=== PATIENT | female | born 1955 | race Asian ===

== ENCOUNTER 2018-08-31 18:48 | Inpatient (IN) | payer OTHER ==
[2018-08-31 19:00] VITALS: BMI 27.9
--- NOTE | 2018-08-31 19:01 | PDOC ---
Rapid Medical Evaluation Chief Complaint: Shortness of Breath Time Seen by Provider: 08/31/18 18:58 Medical Evaluation: Allergies Allergy/AdvReac Type Severity Reaction Status Date / Time No Known Drug Allergies Allergy Verified 08/31/18 18:56 nuts Allergy Mild RASH,ITCHY Uncoded 10 18:56 THROAT seafood Allergy Mild RASH,ITCHY Uncoded 08/31/18 18:56 THROAT I have performed a brief in-person evaluation of this patient. The patient presents with a chief complaint of: SOB x 1 week. cold symptoms. Came back from [place] 2 days ago Pertinent physical exam findings: 100bpm = HR; 88% on RA. congested sounding cough I have ordered the following: CXR, labs, EKG The patient will proceed to the ED for further evaluation Discharge Disposition - Diagnosis Shortness of breath - Referrals Referrals: David Og MD [Primary Care Provider] - - Patient Instructions - Post Discharge Activity
[2018-08-31 19:19] LABS: BASO % 0.2 % (0-2.0); HEMATOCRIT 40.9 % (32.4-45.2); HEMOGLOBIN 12.9 GM/dL (10.7-15.3); LYMPH % 30.7 % (8-40); MCH 23.6 pg (25.7-33.7); MCHC 31.5 g/dl (32.0-36.0); MEAN CELL VOLUME 74.8 fl (80-96); MEAN PLT VOLUME 9.1 fl (7.5-11.1); MONO % 5.2 % (3.8-10.2); NEUT % 54.9 % (42.8-82.8); PLATELET COUNT 232 K/MM3 (134-434); RBC 5.47 M/mm3 (3.60-5.2); RDW 15.4 % (11.6-15.6); WHITE BLOOD COUNT 6.4 K/mm3 (4.0-10.0)
--- NOTE | 2018-08-31 19:35 | PDOC ---
History of Present Illness - General Chief Complaint: Shortness of Breath Stated Complaint: Shortness of Breath Time Seen by Provider: 08/31/18 18:58 History Source: Patient Exam Limitations: No Limitations - History of Present Illness Initial Comments: 08/31/18 19:59 62 year old female with PMH asthma, HLD presenting to ED for SOB and cough x1 week that worsened x1 day ago. She recently flew from [place] to here x1 day ago , 12 hour plane ride, she reports she got up to use the bathroom on the plane. She admits to right calf swelling x1 day. She states her cough is productive, clear, denies hematoptysis. She admits to chest tightness and chest pain with inspiration. She denies fever, chills, nausea, vomiting, diarrhea, abdominal pain, weakness, numbness. She denies use of O2 at home currently, x3 years ago she used O2 at home PRN for 2 months. She was last hospitalized for asthma exacerbation x3 years ago, she denies hx of intubations. PCP - Lofficial Allergies - NKDA Past History - Past Medical History Allergies/Adverse Reactions: Allergies Allergy/AdvReac Type Severity Reaction Status Date / Time No Known Drug Allergies Allergy Verified 08/31/18 18:56 nuts Allergy Mild RASH,ITCHY Uncoded 08/31/18 18:56 THROAT seafood Allergy Mild RASH,ITCHY Uncoded 08/31/18 18:56 THROAT Home Medications: Ambulatory Orders Loratadine [Claritin] 10 mg PO PRN capsule 12/21/13 Montelukast Sodium [Singulair] 10 mg PO HS tablet 12/21/13 Albuterol Sulfate Inhaler - [Ventolin HFA Inhaler -] 1 - 2 inh PO PRN PRN Budesonide/Formeterol Fumarate [SYMBICORT 160/4.5mcg -] 1 inh PO BID 11/02/14 Celecoxib [Celebrex] 200 mg PO DAILY 11/02/14 Omeprazole [Prilosec] 20 mg PO PRN PRN 11/02/14 Simvastatin [Zocor -] 20 mg PO HS 11/02/14 Acetaminophen [Tylenol .Regular Strength -] 650 mg PO Q4H PRN #0 tablet Ibuprofen [Motrin -] 400 mg PO Q6H #120 tablet 11/05/14 Asthma: Yes COPD: No HTN: Yes (DOESN'T TAKE MED) Hypercholesterolemia: Yes - Surgical History Abdominal Surgery: Yes (gall stones removed) Cholecystectomy: Yes Orthopedic Surgery: No - Immunization History Td Vaccination: Yes Immunization Up to Date: Yes - Suicide/Smoking/Psychosocial Hx Smoking Status: No Smoking History: Never smoked Years of Tobacco Use: 0 Number of Cigarettes Smoked Daily: 0 Cigars Per Day: 0 Hx Alcohol Use: No Drug/Substance Use Hx: No Substance Use Type: None Review of Systems - Review of Systems Able to Perform ROS?: Yes Comments:: 08/31/18 20:09 General: denies fever, chills, night sweats, generalized weakness. HEENT: denies sore throat, rhinorrhea, ear pain. Heart: admits to chest tightness, lower extremity swelling, pleuritic chest pain. denies palpitations, syncope, diaphoresis. Respiratory: admits to shortness of breath, cough, sputum production. denies hemoptysis. Abdomen: denies abdominal pain, nausea, vomiting, diarrhea, constipation, blood in stool. : denies dysuria, increased urinary frequency, hematuria, urinary incontinence , flank pain. Back: denies back pain. Musculoskeletal: denies joint pain, muscle pain, joint swelling. Neurological: denies headache, dizziness, numbness, tingling, weakness. Skin: denies rash, laceration, abrasion. *Physical Exam - Vital Signs Last Vital Signs Temp Pulse Resp BP Pulse Ox 99.3 F 100 H 24 H 128/74 88 L 08/31/18 18:56 08/31/18 18:56 08/31/18 18:56 08/31/18 18:56 08/31/18 18:56 - Physical Exam Comments: 08/31/18 20:11 Constitutional: Well-nourished, Well-developed, appearing stated age. HEENT: head is normocephalic, atraumatic. EOMI. PERRLA. Neck: supple. Full ROM. Heart: regular rhythm. no murmurs, rubs or gallops. Lungs: clear to auscultation bilaterally. no crackles, rhonchi or wheezing. no stridor. Abdomen: soft, nontender. normal bowel sounds. no rebound, guarding, masses. Extremities: Peripheral pulses intact and equal. no calf tenderness to palpation of bilateral calf. minimal right lower leg non-pitting edema. Neurological: CN 2-12 grossly intact. Moves all four extremities. Psych: awake, alert, oriented x3. Follows commands. Answers questions appropriately. ED Treatment Course - LABORATORY CBC & Chemistry Diagram: 09/01/18 06:20 09/01/18 06:20 - ADDITIONAL ORDERS Additional order review: Laboratory Results 08/31/18 19:00 D-Dimer 749 H 08/31/18 19:13 RBC 5.47 H MCV 74.8 L MCHC 31.5 L RDW 15.4 MPV 9.1 Neutrophils % 54.9 Lymphocytes % 30.7 Monocytes % 5.2 Eosinophils % 9.0 H Basophils % 0.2 Medical Decision Making - Medical Decision Making 08/31/18 20:12 62 year old female with PMH asthma, HLD presenting to ED for SOB and cough x1 week that worsened x1 day ago. She recently flew from [place] to here x1 day ago , 12 hour plane ride associated with right calf swelling, chest tightness, pleuritic chest pain. Initial Vital Signs Temp Pulse Resp BP Pulse Ox 99.3 F 100 H 24 H 128/74 88 L 08/31/18 18:56 10 18:56 08/31/18 18:56 08/31/18 18:56 08/31/18 18:56 Borderline fever. - Pending rectal temp Tachycardic, Tachypneic. No hypotension. Hypoxia on room air. - 3L O2 given - Currently satting 96% - Duoneb ordered Concern for PE/DVT/pneumonia - Pending CTA - Pending RLE Duplex US CBC WBC 6.4 K/mm3 (4.0-10.0) 08/31/18 19:13 RBC 5.47 M/mm3 (3.60-5.2) H 08/31/18 19:13 Hgb 12.9 GM/dL (10.7-15.3) 08/31/18 19:13 Hct 40.9 % (32.4-45.2) 08/31/18 19:13 MCV 74.8 fl (80-96) L 08/31/18 19:13 MCH 23.6 pg (25.7-33.7) L 08/31/18 19: MCHC 31.5 g/dl (32.0-36.0) L 08/31/18 19:13 RDW 15.4 % (11.6-15.6) 08/31/18 19:13 Plt Count 232 K/MM3 (134-434) 08/31/18 19:13 MPV 9.1 fl (7.5-11.1) 08/31/18 19:13 Absolute Neuts (auto) 3.5 K/mm3 (1.5-8.0) 08/31/18 19:13 Neutrophils % 54.9 % (42.8-82.8) 08/31/18 19:13 Lymphocytes % 30.7 % (8-40) 08/31/18 19:13 Monocytes % 5.2 % (3.8-10.2) 08/31/18 19:13 Eosinophils % 9.0 % (0-4.5) H 08/31/18 19:13 Basophils % 0.2 % (0-2.0) 08/31/18 19:13 Nucleated RBC % 0 % (0-0) 08/31/18 19:13 No leukocytosis No anemia CMP Sodium 142 mmol/L (136-145) 08/31/18 19:00 Potassium 4.1 mmol/L (3.5-5.1) 08/31/18 19:00 Chloride 109 mmol/L (98-107) H 08/31/18 19:00 Carbon Dioxide 28 mmol/L (21-32) 08/31/18 19:00 Anion Gap 5 MMOL/L (8-16) L 08/31/18 19:00 BUN 8 mg/dL (7-18) 08/31/18 19:00 Creatinine 0.6 mg/dL (0.55-1.3) 08/31/18 19:00 Creat Clearance w eGFR > 60 (>60) 08/31/18 19:00 Random Glucose 135 mg/dL (74-106) H 08/31/18 19:00 Lactic Acid 1.3 mmol/L (0.4-2.0) 08/31/18 19:00 Calcium 9.3 mg/dL (8.5-10.1) 08/31/18 19:00 Total Bilirubin 0.2 mg/dL (0.2-1) 08/31/18 19:00 AST 10 U/L (15-37) L 08/31/18 19:00 ALT 17 U/L (13-61) 08/31/18 19:00 Alkaline Phosphatase 106 U/L (45-117) 08/31/18 19:00 Creatine Kinase 44 IU/L (26-192) 08/31/18 19:00 Troponin I < 0.02 ng/ml (0.00-0.05) 08/31/18 19:00 Total Protein 7.0 g/dl (6.4-8.2) 08/31/18 19:00 Albumin 3.5 g/dl (3.4-5.0) 08/31/18 19:00 No electrolyte abnormalities No acute kidney injury - Pt can be given IV contrast for CTA, seafood allergy does not contraindicate contrast in the setting of emergent CTA No transaminitis Cardiac enzymes normal. 08/31/18 20:28 CXR - no infiltrates or evidence of pneumonia. sharp costophrenic angles. no cardiomegaly. no pulmonary alveolar edema. 08/31/18 21:35 CTA negative for pulmonary embolism. Positive D-dimer. 08/31/18 21:57 Large pulmonary embolism unlikely, negative CTA. Pneumonia unlikely, afebrile, negative CXR, no pneumonia on CTA. Large pneumothorax unlikely, equal breath sounds, no pneumo on CXR. CHF unlikely, no pitting edema, no crackles on auscultation, no cardiomegaly on CXR, no pulmonary alveolar edema on CXR. Pt likely has asthma exacerbation, similar episode to prior. Pt will be admitted for shortness of breath, hx of asthma, requiring O2 supplementation. 08/31/18 22:[address] Rdz about the case, who will assume care for the patient once she is admitted. *DC/Admit/Observation/Transfer Diagnosis at time of Disposition: Shortness of breath - Discharge Dispostion Condition at time of disposition: Stable Decision to Admit order: Yes - Referrals - Patient Instructions - Post Discharge Activity
--- NOTE | 2018-08-31 19:40 | PDOC ---
Attending Attestation - Resident Resident Name: Mandi Rosa - ED Attending Attestation I have performed the following: I have examined & evaluated the patient, The case was reviewed & discussed with the resident, I agree w/resident's findings & plan, Exceptions are as noted - HPI HPI: 62 yo F history asthma, HL presents with SOB and cough x1 week, worse for 1 day. She just returned from [place], 12 hour flight. Also c/o R calf swelling x1 day. - Physicial Exam PE: GENERAL: Awake, alert, and fully oriented, in no acute distress HEAD: No signs of trauma EYES: PERRLA, EOMI, sclera anicteric, conjunctiva clear ENT: Auricles normal inspection, hearing grossly normal, nares patent, oropharynx clear without exudates. Moist mucosa NECK: Normal ROM, supple, no lymphadenopathy, JVD, or masses LUNGS: Breath sounds equal, clear to auscultation bilaterally. No wheezes, and no crackles. Speaking full sentences. HEART: Regular rate and rhythm, normal S1 and S2, no murmurs, rubs or gallops ABDOMEN: Soft, nontender, normoactive bowel sounds. No guarding, no rebound. No masses EXTREMITIES: Normal range of motion, no edema LLE. 1+ edema to the R ankle. No clubbing or cyanosis. No cords, erythema, or tenderness NEUROLOGICAL: Cranial nerves II through XII grossly intact. Normal speech. Motor and sensation intact. SKIN: Warm, Dry, normal turgor, no rashes or lesions noted. - Medical Decision Making Pt with tachycardia and hypoxia on triage. High risk for PE based on clinical eval, will obtain CTA to r/o PE. If negative, will obtain ultrasound of the lower extremity to r/o DVT. 08/31/18 22:11 CTA negative for PE. Will obtain RLE DVT study. Will give additional duonebs, as she has history of exertional dyspnea due to asthma in the past. Will plan on observation.
[2018-08-31 19:48] LABS: ALBUMIN 3.5 g/dl (3.4-5.0); ALK PHOS 106 U/L (45-117); ANION GAP 5 MMOL/L (8-16); BILIRUBIN,TOTAL 0.2 mg/dL (0.2-1); BLOOD UREA NITROGEN 8 mg/dL (7-18); CALCIUM 9.3 mg/dL (8.5-10.1); CHLORIDE 109 mmol/L (98-107); CO2 28 mmol/L (21-32); CREATININE 0.6 mg/dL (0.55-1.3); GLUCOSE,RANDOM 135 mg/dL (74-106); POTASSIUM 4.1 mmol/L (3.5-5.1); SGOT/AST 10 U/L (15-37); SGPT/ALT 17 U/L (13-61); SODIUM 142 mmol/L (136-145)
[2018-08-31] MEDS: ALBUTEROL SO4 2.5/IPRATROPIUM 0.5 INH SOL 3 ML VIAL.NEB. NEB SCH ×4 (22:15→23:00)
[2018-08-31 22:46] LABS: N-TERMINAL BNP 51.8 pg/ml (5-125)
--- NOTE | 2018-08-31 22:56 | PN ---
Teaching Attending Note Name of Resident: Matt Rdz ATTENDING PHYSICIAN STATEMENT I saw and evaluated the patient. I reviewed the resident's note and discussed the case with the resident. I agree with the resident's findings and plan as documented. SUBJECTIVE: Patient is a 62 year old woman with PMH of asthma, HLD presenting to ER for SOB and cough for 1 week. She recently flew from [place] to here x1 day ago on a 12 hour plane ride. She admits to right calf swelling for1 day. She states her cough is productive, clear, denies hemoptysis. She admits to chest tightness and chest pain with inspiration. She denies fever, chills, nausea, vomiting, diarrhea, abdominal pain, weakness, numbness. She denies use of O2 at home currently. Three years ago she used O2 at home PRN for 2 months. She was last hospitalized for asthma exacerbation x3 years ago and she denies history of intubations. OBJECTIVE: Alert Vital Signs Period Temp Pulse Resp BP Sys/Mendoza Pulse Ox Last 24 Hr 99.3 F 100 24 128/74 88 HEENT: No Jaundice, eye redness or discharge, PERRLA, EOMI. Normocephalic, atraumatic. External ears are normal and hearing is grossly intact. No nasal discharge. Neck: Supple, nontender. No palpable adenopathy or thyromegaly. No JVD Chest: Good effort. Clear to auscultation and percussion. Heart: Regular. No S3, rub or murmur Abdomen: Not distended, soft, nontender and no HSM. No rebound or guarding. Normoactive bowel sounds. Ext: Peripheral pulses intact. No leg edema. Skin: Warm and dry. No petechiae, rash or ecchymosis. Neuro: Alert. Oriented x3. CN 2-12 grossly intact. Sensation grossly intact in all four extremities and DTR are symmetric. Current Medications Generic Name Dose Route Start Last Admin Trade Name Freq PRN Reason Stop Dose Admin Albuterol/Ipratropium 1 amp 08/31/18 22:15 Duoneb - NEB 08/31/18 23:01 Q15M [facility] Home Medications Medication Instructions Recorded Loratadine [Claritin] 10 mg PO PRN capsule 12/21/13 Montelukast Sodium [Singulair] 10 mg PO HS tablet 12/21/13 Albuterol Sulfate Inhaler - 1 - 2 inh PO PRN PRN 11/02/14 [Ventolin HFA Inhaler -] Budesonide/Formeterol Fumarate 1 inh PO BID 11/02/14 [SYMBICORT 160/4.5mcg -] Celecoxib [Celebrex] 200 mg PO DAILY 11/02/14 Omeprazole [Prilosec] 20 mg PO PRN PRN 11/02/14 Simvastatin [Zocor -] 20 mg PO HS 11/02/14 Acetaminophen [Tylenol .Regular 650 mg PO Q4H PRN #0 tablet 11/05/14 Strength -] Ibuprofen [Motrin -] 400 mg PO Q6H #120 tablet 11/05/14 Abnormal Lab Results 08/31/18 08/31/18 08/31/18 19:00 19:00 19:13 RBC 5.47 H MCV 74.8 L MCH 23.6 L MCHC 31.5 L Eosinophils % 9.0 H D-Dimer 749 H Chloride 109 H Anion Gap 5 L Random Glucose 135 H AST 10 L ASSESSMENT AND PLAN: 1. Acute Bronchospasm - May have been precipitated by a URI. No PE on CTPA and CXR shows cardiomegaly. Will treat with duoneb, symbicort, spiriva and azithromycin. Get ECHO. 2. DVT prophylaxis - Lovenox 40 mg SQ q 24 hours. 3. Advance directives - Full code
[2018-08-31] MEDS ORDERED: ALBUTEROL SO4 2.5/IPRATROPIUM 0.5 INH SOL 3 ML VIAL.NEB. NEB ONE (23:08)
[2018-09-01] MEDS ORDERED: ALBUTEROL SO4 2.5/IPRATROPIUM 0.5 INH SOL 3 ML VIAL.NEB. NEB PRN (01:08)
[2018-09-01] MEDS ORDERED: AZITHROMYCIN IVPB 250 MG in DEXTROSE 5%-WATER - 250 ML IVPB ONE (01:24)
[2018-09-01 01:30] LABS: VENOUS PC02 41.4 mmHg (38-52); VENOUS PH 7.38 (7.32-7.42); VENOUS PO2 51.9 mmHg (28-48)
[2018-09-01] MEDS ORDERED: PATIENT'S OWN MEDICATION (NON-FORMULARY) (Omeprazole Pediatric Solution 20 MG) PO PRN (01:41)
[2018-09-01] MEDS ORDERED: CELECOXIB 200 MG CAPSULE PO PRN (01:41)
[2018-09-01] MEDS ORDERED: LORATADINE 10 MG PO SCH (01:45)
--- NOTE | 2018-09-01 01:45 | HP ---
CHIEF COMPLAINT: SOB PCP: Dr. Caazresofficial HISTORY OF PRESENT ILLNESS: Pt speaks Uzbek primarily, but does speak Swedish. Family at bedside helped provide some history. Daughter is a nurse. Pt is a 62 y/o F with PMH asthma and COPD who presents to ED with complaint of malaise and cough for 1 week. Cough is productive of minimal clear sputum has been worse since yesterday. Pt endorses some chest tightness. Pt recently returned from a trip to [place] in March. She got back about 1 week ago and states her symptoms began before her flight home. Pt also notes that she has been using her nebulizer recently. She doesn't normally need it, but has been using it over the past week. Family note that pt is using it twice daily and occasionally has woken up to use it at night. Per ED staff, pt told them she felt her R leg was slightly swollen. Family clarified to me that the patient had seen her doctor previously and that her ankle had an isolated region of possible swelling (on the lateral aspect anterior to the lateral maleolus). No other complaints. Pt feels much better now than when she arrived in ED. ER course was notable for: (1) no leukocytosis, afebrile, D-dimer 749 (2) b/l LE U/S pending, CXR normal, CTA neg for PE (3) duonebs Recent Travel: [place] in March. Returned 1 week ago PAST MEDICAL HISTORY: asthma, COPD, HLD PAST SURGICAL HISTORY: cholecystectomy Social History: Smoking: denies Alcohol: denies Drugs: denies Family History: denies Allergies No Known Drug Allergies Allergy (Verified 08/31/18 18:56) nuts Allergy (Mild, Uncoded 08/31/18 18:56) RASH,ITCHY THROAT seafood Allergy (Mild, Uncoded 08/31/18 18:56) RASH,ITCHY THROAT HOME MEDICATIONS: Home Medications Medication Instructions Recorded Loratadine [Claritin] 10 mg PO PRN capsule 12/21/13 Montelukast Sodium [Singulair] 10 mg PO HS tablet 12/21/13 Albuterol Sulfate Inhaler - 1 - 2 inh PO PRN PRN 11/02/14 [Ventolin HFA Inhaler -] Budesonide/Formeterol Fumarate 1 inh PO BID 11/02/14 [SYMBICORT 160/4.5mcg -] Celecoxib [Celebrex] 200 mg PO DAILY 11/02/14 Omeprazole [Prilosec] 20 mg PO PRN PRN 11/02/14 Simvastatin [Zocor -] 20 mg PO HS 11/02/14 Acetaminophen [Tylenol .Regular 650 mg PO Q4H PRN #0 tablet 11/05/14 Strength -] Ibuprofen [Motrin -] 400 mg PO Q6H #120 tablet 11/05/14 REVIEW OF SYSTEMS CONSTITUTIONAL: Absent: fever, chills, diaphoresis, generalized weakness, malaise, loss of appetite, weight change HEENT: Absent: rhinorrhea, nasal congestion, throat pain, throat swelling, difficulty swallowing, mouth swelling, ear pain, eye pain, visual changes CARDIOVASCULAR: Absent: chest pain, syncope, palpitations, irregular heart rate, lightheadedness , peripheral edema RESPIRATORY: cough, shortness of breath Absent: , dyspnea with exertion, orthopnea, wheezing, stridor, hemoptysis GASTROINTESTINAL: Absent: abdominal pain, abdominal distension, nausea, vomiting, diarrhea, constipation, melena, hematochezia GENITOURINARY: Absent: dysuria, frequency, urgency, hesitancy, hematuria, flank pain, genital pain MUSCULOSKELETAL: joint swelling Absent: myalgia, arthralgia, , back pain, neck pain SKIN: Absent: rash, itching, pallor HEMATOLOGIC/IMMUNOLOGIC: Absent: easy bleeding, easy bruising, lymphadenopathy, frequent infections ENDOCRINE: Absent: unexplained weight gain, unexplained weight loss, heat intolerance, cold intolerance NEUROLOGIC: Absent: headache, focal weakness or paresthesias, dizziness, unsteady gait, seizure, mental status changes, bladder or bowel incontinence PSYCHIATRIC: Absent: anxiety, depression, suicidal or homicidal ideation, hallucinations. PHYSICAL EXAMINATION Vital Signs - 24 hr 08/31/18 09/01/18 18:56 00:58 Temperature 99.3 F 98.0 F Pulse Rate 100 H Pulse Rate [ 103 H Apical] Respiratory 24 H 18 Rate Blood Pressure 128/74 Blood Pressure 111/64 [Left] O2 Sat by Pulse 88 L 95 Oximetry (%) Gen: Comfortable, NAD, sitting in bed HEENT: NCAT, EOMI neck: supple, no jvd, no stridor, no wheeze cardio: mild tachy ~90, regular, no murmurs/rubs/gallops pulm: cta b/l. No wheezing appreciated abd: soft, nontender, non distended, no masses noted ext: right ankle with very minimal swelling anterior to lat malleolus. no calf swelling/erythema. Moran neg. Homman neg. Neuro: no focal deficits. No droop. strength and sensation intact. Laboratory Results - last 24 hr 08/31/18 08/31/18 08/31/18 19:00 19:00 19:00 WBC RBC Hgb Hct MCV MCH MCHC RDW Plt Count MPV Absolute Neuts (auto) Neutrophils % Lymphocytes % Monocytes % Eosinophils % Basophils % Nucleated RBC % D-Dimer 749 H Sodium 142 Potassium 4.1 Chloride 109 H Carbon Dioxide 28 Anion Gap 5 L BUN 8 Creatinine 0.6 Creat Clearance w eGFR > 60 Random Glucose 135 H Lactic Acid 1.3 Calcium 9.3 Total Bilirubin 0.2 AST 10 L ALT 17 Alkaline Phosphatase 106 Creatine Kinase 44 Troponin I < 0.02 B-Natriuretic Peptide 51.8 Total Protein 7.0 Albumin 3.5 08/31/18 19:13 WBC 6.4 RBC 5.47 H Hgb 12.9 Hct 40.9 MCV 74.8 L MCH 23.6 L MCHC 31.5 L RDW 15.4 Plt Count 232 MPV 9.1 Absolute Neuts (auto) 3.5 Neutrophils % 54.9 Lymphocytes % 30.7 Monocytes % 5.2 Eosinophils % 9.0 H Basophils % 0.2 Nucleated RBC % 0 D-Dimer Sodium Potassium Chloride Carbon Dioxide Anion Gap BUN Creatinine Creat Clearance w eGFR Random Glucose Lactic Acid Calcium Total Bilirubin AST ALT Alkaline Phosphatase Creatine Kinase Troponin I B-Natriuretic Peptide Total Protein Albumin ASSESSMENT/PLAN: Pt is a 62 y/o F with PMH asthma, COPD who presented to ED with cough. Pt is being observed for asthma exacerbation and to r/o VTE. #Asthma exacerbation -c/o SOB/Cough -? etiology. No signs of infection. Clear sputum, Afebrile, no leukocytosis, CXR /CT chest neg. Consider possible viral URI -Duonebs standing and prn -prednisone -coverage with Azithromycin #r/o PE -presenting with SOB and cough following long plane trip -D-dimer elevated -CTA neg #r/o DVT -presenting with SOB and cough following long plane trip -b/l LE u/s #cardiomegally -Noted on CXR -Echo #COPD -continue home Symbicort, Singulair #Allergies -c/w home claratin #HLD -c/w home simvastatin #arthritis -c/w celebrex #FEN -not on fluids -lytes wnl -reg diet #PPx -lovenox #Dispo -Obs for asthma exacerbation Matt Rdz MD PGY-2 IM Visit type - Emergency Visit Emergency Visit: Yes ED Registration Date: 08/31/18 Care time: The patient presented to the Emergency Department on the above date and was hospitalized for further evaluation of their emergent condition. - New Patient This patient is new to me today: Yes Date on this admission: 09/01/18 - Critical Care Critical Care patient: No
[2018-09-01] MEDS ORDERED: PANTOPRAZOLE 20 MG TABLET (FP) PO PRN (06:45)
[2018-09-01] MEDS ORDERED: ACETAMINOPHEN 325 MG TABLET (FP) PO ONE (07:04)
[2018-09-01 08:16] LABS: BASO % 0.4 % (0-2.0); HEMATOCRIT 39.7 % (32.4-45.2); HEMOGLOBIN 12.4 GM/dL (10.7-15.3); MCH 23.3 pg (25.7-33.7); MCHC 31.3 g/dl (32.0-36.0); MEAN CELL VOLUME 74.6 fl (80-96); MEAN PLT VOLUME 9.3 fl (7.5-11.1); MONO % 5.2 % (3.8-10.2); NEUT % 81.4 % (42.8-82.8); PLATELET COUNT 253 K/MM3 (134-434); RBC 5.32 M/mm3 (3.60-5.2); RDW 15.2 % (11.6-15.6); WHITE BLOOD COUNT 10.3 K/mm3 (4.0-10.0)
[2018-09-01] MEDS: ALBUTEROL SO4 2.5/IPRATROPIUM 0.5 INH SOL 3 ML VIAL.NEB. NEB SCH ×4 (08:27→20:20)
[2018-09-01 08:29] LABS: ANION GAP 10 MMOL/L (8-16); BLOOD UREA NITROGEN 10 mg/dL (7-18); CALCIUM 9.8 mg/dL (8.5-10.1); CHLORIDE 108 mmol/L (98-107); CO2 24 mmol/L (21-32); CREATININE 0.6 mg/dL (0.55-1.3); GLUCOSE,RANDOM 114 mg/dL (74-106); POTASSIUM 4.3 mmol/L (3.5-5.1); SODIUM 142 mmol/L (136-145)
[2018-09-01] MEDS ORDERED: PT OWN MED DRAWER 7, Y5N ONE (09:41)
[2018-09-01] MEDS ORDERED: predniSONE 20 MG TABLET (UD) PO SCH (10:00)
[2018-09-01] MEDS ORDERED: ENOXAPARIN NA (PORCINE) 30 MG/0.3 ML DISP.SYRIN SQ SCH (10:00)
[2018-09-01] MEDS: BUDESONIDE/FORMETEROL FUMARATE 160/4.5 mcg INHALER IH SCH ×2 (10:01→22:12)
[2018-09-01] MEDS: LORATADINE 10 MG TABLET PO SCH (10:01)
[2018-09-01] MEDS: ENOXAPARIN NA (PORCINE) 40 MG/0.4 ML DISP.SYRIN SQ SCH (10:09)
--- NOTE | 2018-09-01 10:42 | EKG ---
Test Reason : Blood Pressure : / mmHG Vent. Rate : 106 BPM Atrial Rate : 106 BPM P-R Int : 162 ms QRS Dur : 070 ms QT Int : 350 ms P-R-T Axes : 069 031 047 degrees QTc Int : 464 ms SINUS TACHYCARDIA WITH OCCASIONAL PREMATURE VENTRICULAR COMPLEXES OTHERWISE NORMAL ECG WHEN COMPARED WITH ECG OF 23-JUL-2009 09:37, NO SIGNIFICANT CHANGE WAS FOUND Confirmed by Lalo Baumann MD ([id number]) on 09/01/2018 10:42:14 AM Referred By: Confirmed By:Lalo Baumann MD
--- NOTE | 2018-09-01 11:49 | PN ---
Physical Exam: SUBJECTIVE: Patient seen and examined at the bedside. Feels better but still having shortness of breath at rest. not home oxygen dependent. mild conversational dyspnea. OBJECTIVE: pulmonary consulted. Vital Signs Period Temp Pulse Resp BP Sys/Mendoza Pulse Ox Last 24 Hr 97.8 F-99.3 F 72-107 17-24 107-133/58-74 88-95 GENERAL: The patient is awake, alert, and fully oriented, in no acute distress. HEAD: Normal with no signs of trauma. EYES: PERRL, extraocular movements intact, sclera anicteric, conjunctiva clear. No ptosis. ENT: Ears normal, nares patent, oropharynx clear without exudates, moist mucous membranes. NECK: Trachea midline, full range of motion, supple. LUNGS:diminished bilaterally, unable to take in a deep breath. coughs with deep breathing. HEART: Regular rate and rhythm, ABDOMEN: Soft, nontender, nondistended, normoactive bowel sounds, no guarding, no rebound, no hepatosplenomegaly, no masses. EXTREMITIES: 2+ pulses, warm, well-perfused, no edema. NEUROLOGICAL: Cranial nerves II through XII grossly intact. Normal speech, gait not observed. PSYCH: Normal mood, normal affect. SKIN: Warm, dry, normal turgor, no rashes or lesions noted Laboratory Results - last 24 hr 08/31/18 08/31/18 08/31/18 19:00 19:00 19:00 WBC RBC Hgb Hct MCV MCH MCHC RDW Plt Count MPV Absolute Neuts (auto) Neutrophils % Lymphocytes % Monocytes % Eosinophils % Basophils % Nucleated RBC % D-Dimer 749 H VBG pH POC VBG pCO2 POC VBG pO2 Mixed VBG HCO3 Sodium 142 Potassium 4.1 Chloride 109 H Carbon Dioxide 28 Anion Gap 5 L BUN 8 Creatinine 0.6 Creat Clearance w eGFR > 60 POC Glucometer Random Glucose 135 H Lactic Acid 1.3 Calcium 9.3 Total Bilirubin 0.2 AST 10 L ALT 17 Alkaline Phosphatase 106 Creatine Kinase 44 Troponin I < 0.02 B-Natriuretic Peptide 51.8 Total Protein 7.0 Albumin 3.5 08/31/18 09/01/18 09/01/18 19:13 01:05 06:20 WBC 6.4 10.3 H RBC 5.47 H 5.32 H Hgb 12.9 12.4 Hct 40.9 39.7 MCV 74.8 L 74.6 L MCH 23.6 L 23.3 L MCHC 31.5 L 31.3 L RDW 15.4 15.2 Plt Count 232 253 MPV 9.1 9.3 Absolute Neuts (auto) 3.5 8.4 H Neutrophils % 54.9 81.4 D Lymphocytes % 30.7 13.0 D Monocytes % 5.2 5.2 Eosinophils % 9.0 H 0.0 D Basophils % 0.2 0.4 Nucleated RBC % 0 0 D-Dimer VBG pH 7.38 POC VBG pCO2 41.4 POC VBG pO2 51.9 H Mixed VBG HCO3 24.1 Sodium Potassium Chloride Carbon Dioxide Anion Gap BUN Creatinine Creat Clearance w eGFR POC Glucometer Random Glucose Lactic Acid Calcium Total Bilirubin AST ALT Alkaline Phosphatase Creatine Kinase Troponin I B-Natriuretic Peptide Total Protein Albumin 09/01/18 09/01/18 06:20 06:40 WBC RBC Hgb Hct MCV MCH MCHC RDW Plt Count MPV Absolute Neuts (auto) Neutrophils % Lymphocytes % Monocytes % Eosinophils % Basophils % Nucleated RBC % D-Dimer VBG pH POC VBG pCO2 POC VBG pO2 Mixed VBG HCO3 Sodium 142 Potassium 4.3 Chloride 108 H Carbon Dioxide 24 Anion Gap 10 BUN 10 Creatinine 0.6 Creat Clearance w eGFR > 60 POC Glucometer 130 Random Glucose 114 H Lactic Acid Calcium 9.8 Total Bilirubin AST ALT Alkaline Phosphatase Creatine Kinase Troponin I B-Natriuretic Peptide Total Protein Albumin Active Medications Generic Name Dose Route Start Last Admin Trade Name Freq PRN Reason Stop Dose Admin Albuterol/Ipratropium 1 amp 09/01/18 08:00 09/01/18 08:27 Duoneb - NEB 1 amp RQID RENATO Administration Albuterol/Ipratropium 1 amp 09/01/18 01:08 Duoneb - NEB Q4H PRN SHORTNESS OF BREATH Atorvastatin Calcium 10 mg 09/01/18 22:00 Lipitor - PO HS RENATO Budesonide/Formoterol Fumarate 1 puff 09/01/18 10:00 09/01/18 10:01 Symbicort 160/4.5mcg - IH 1 puff BID RENATO Administration Celecoxib 200 mg 09/01/18 01:41 Celebrex - PO DAILY PRN PAIN LEVEL 1-5 Enoxaparin Sodium 40 mg 09/01/18 10:00 09/01/18 10:09 Lovenox - SQ 40 mg DAILY RENATO Administration Loratadine 10 mg 09/01/18 10:00 09/01/18 10:01 Claritin - PO 10 mg DAILY RENATO Administration Montelukast Sodium 10 mg 09/01/18 22:00 Singulair - PO HS RENATO Pantoprazole Sodium 20 mg 09/01/18 06:45 Protonix - PO DAILY PRN DYSPEPSIA Prednisone 20 mg 09/01/18 10:00 09/01/18 10:01 Deltasone - PO 20 mg DAILY RENATO Administration ASSESSMENT/PLAN: Patient is a 62 year old female with a past medical history of asthma and COPD ( not home oxygen dependent). She presents to the ED with cough and asthma exacerbation. She had recentlyly traveled to [place]. Pulm: Asthma exacerbation, acute Still having shortness of breath at rest with increased coughing. Started on Prednisone 20mg daily, but will likely need solumedrol for acute exacerbation. No wheezing. Pulm consulted for further recommendation. Chest xray negative for acute process. On scheduled duonebs, Azithromycin, singulair and supplemental oxygen prn. Vascular: Negative for DVT CTA negative for PE Card: cardiomegay seen on xray. echo ordered and pending. Visit type - Emergency Visit Emergency Visit: Yes ED Registration Date: 09/01/18 Care time: The patient presented to the Emergency Department on the above date and was hospitalized for further evaluation of their emergent condition. - New Patient This patient is new to me today: Yes Date on this admission: 09/01/18 - Critical Care Critical Care patient: No - Discharge Referral Referred to [facility] Med [facility].C[facility] No
--- NOTE | 2018-09-01 13:45 | PN ---
Progress Note (short form) - Note Progress Note: PULMONARY CONSULTATION DICTATED IMP HYPOXEMIA ACUTE ASTHMA/COPD EXACERBATION HLD PLAN IV STEROIDS INHALED BRONCHODILATORS O2 MONITOR PEAK FLOW DVT PROPHYLAXIS PFTS OUTPATIENT DR LOPEZ Problem List - Problems (1) Hypoxemia Code(s): R09.02 - HYPOXEMIA (2) Hypoxemia requiring supplemental oxygen Code(s): R09.02 - HYPOXEMIA; Z99.81 - DEPENDENCE ON SUPPLEMENTAL OXYGEN (3) Shortness of breath Code(s): R06.02 - SHORTNESS OF BREATH (4) Asthma exacerbation with COPD (chronic obstructive pulmonary disease) Code(s): J44.1 - CHRONIC OBSTRUCTIVE PULMONARY DISEASE W (ACUTE) EXACERBATION; J45.901 - UNSPECIFIED ASTHMA WITH (ACUTE) EXACERBATION
--- NOTE | 2018-09-01 14:18 | CONS ---
PULMONARY CONSULTATION DATE OF CONSULTATION: 09/01/2018 REFERRING PHYSICIAN: Nahomy Koenig NP The patient is a 62-year-old [place] female with past medical history of asthma/COPD, nonsmoker, hyperlipidemia, admitted to [facility] with complaint of 1-week history of generalized malaise and cough. Patient initially was productive with minimal clear sputum. A couple of days prior to admission, she started developing increasing shortness of breath, dyspnea on exertion, and chest tightness which inhaled bronchodilators did not offer any relief. At which time, she went to the emergency room. The patient recently was in [place] and returned home approximately 1 week prior to her symptoms beginning. She denies any fevers, weight loss, or night sweats. Denies hemoptysis. She is a nonsmoker. There is no history of occupational exposure to chemicals or fumes. On admission, she was treated with some inhaled bronchodilators with some improvement and transferred out to the medical floor for further management. She also noted that her right lower extremity was slightly swollen. She underwent a duplex of the lower extremities which were negative for DVT. She also underwent a CTA of the chest which revealed no evidence of acute pulmonary emboli. No evidence of infiltrates or effusions. PAST MEDICAL HISTORY: Again includes asthma, hyperlipidemia. REVIEW OF SYSTEMS: Positive shortness of breath. Positive cough. Positive chest tightness. Positive dyspnea on exertion. No fever. No chills. No hemoptysis. No abdominal pain. CURRENT MEDICATIONS: Include Lovenox, prednisone, DuoNeb, Singulair, Protonix, and Claritin. PHYSICAL EXAMINATION: General: The patient is a well-developed, well-nourished female, awake, alert, in no acute respiratory distress. Vital Signs: She is currently afebrile. Blood pressure is 133/58. Respiratory rate is 20. O2 saturation is 95% on 3 L. HEENT: Normocephalic, atraumatic. Neck: Supple. Heart: Regular. S1, S2. Chest: A few scattered bilateral wheezes. Abdomen: Soft. Bowel sounds are positive. Extremities: No cyanosis or edema. LABORATORY DATA: WBC is 10.3, hemoglobin 12.4, hematocrit 39.7, with a platelet count of 253,000. D-dimer is 749. Venous blood gas 7.38, pCO2 of 41, pO2 of 51, and bicarbonate of 21. Chemistries: BUN 10, creatinine 0.6. IMPRESSION: 1. Acute asthma exacerbation. 2. History of hyperlipidemia. PLAN: IV steroids, inhaled bronchodilators, supplemental O2, PFTs as outpatient. Monitor peak flow. VIRA LOPEZ M.D. [facility]/[id number]
[2018-09-01] MEDS: methylPREDNISolone NA SUCC 40 MG/1 ML VIAL IVPUSH SCH ×2 (15:14→17:55)
--- NOTE | 2018-09-01 16:01 | ECHO ---
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 Left Ventricle The left ventricular size, thickness and function are normal. Ejection Fraction = 55%. The transmitra l spectral Doppler flow pattern is suggestive of impaired LV relaxation. Right Ventricle The right ventricle is normal in size and function. Atria Normal left and right atrial size and function. Mitral Valve The mitral valve is grossly normal. There is trace mitral regurgitation. Tricuspid Valve The tricuspid valve is not well visualized, but is grossly normal. There is trace tricuspid regurgita tion. Right ventricular systolic pressure is normal. Aortic Valve The aortic valve is normal in structure and function. Trace to mild aortic regurgitation. Pulmonic Valve The pulmonic valve is not well visualized. Great Vessels The aortic root is normal size. Pericardium/Pleura There is no pericardial effusion. There is no pleural effusion. Interpretation Summary The left ventricular size, thickness and function are normal Ejection Fraction = 55%. There is trace mitral regurgitation. There is trace tricuspid regurgitation. Right ventricular systolic pressure is normal. Trace to mild aortic regurgitation. MD Lalo Baumann 09/01/2018 04:00 PM
[2018-09-01] MEDS ORDERED: ACETAMINOPHEN 325 MG TABLET (FP) PO PRN (21:23)
[2018-09-01] MEDS ORDERED: ATORVASTATIN CA 10 MG TABLET (FP) PO SCH (22:00)
[2018-09-01] MEDS ORDERED: MONTELUKAST NA 10 MG TABLET PO SCH (22:00)
[2018-09-02] MEDS: methylPREDNISolone NA SUCC 40 MG/1 ML VIAL IVPUSH SCH ×2 (02:57→12:06)
[2018-09-02] MEDS: ALBUTEROL SO4 2.5/IPRATROPIUM 0.5 INH SOL 3 ML VIAL.NEB. NEB SCH ×2 (07:20→11:20)
[2018-09-02 10:26] LABS: BASO % 0.1 % (0-2.0); HEMOGLOBIN 12.2 GM/dL (10.7-15.3); LYMPH % 7.6 % (8-40); MCH 23.5 pg (25.7-33.7); MCHC 31.2 g/dl (32.0-36.0); MEAN CELL VOLUME 75.3 fl (80-96); MEAN PLT VOLUME 9.3 fl (7.5-11.1); MONO % 2.6 % (3.8-10.2); NEUT % 89.7 % (42.8-82.8); PLATELET COUNT 272 K/MM3 (134-434); RBC 5.18 M/mm3 (3.60-5.2); RDW 15.5 % (11.6-15.6); WHITE BLOOD COUNT 15.1 K/mm3 (4.0-10.0)
[2018-09-02 11:06] LABS: ALBUMIN 3.4 g/dl (3.4-5.0); ALK PHOS 93 U/L (45-117); ANION GAP 13 MMOL/L (8-16); BILIRUBIN,TOTAL 0.2 mg/dL (0.2-1); BLOOD UREA NITROGEN 14 mg/dL (7-18); CALCIUM 9.2 mg/dL (8.5-10.1); CHLORIDE 106 mmol/L (98-107); CO2 22 mmol/L (21-32); CREATININE 0.8 mg/dL (0.55-1.3); GLUCOSE,RANDOM 197 mg/dL (74-106); MAGNESIUM 2.1 mg/dL (1.8-2.4); POTASSIUM 4.4 mmol/L (3.5-5.1); SGOT/AST 7 U/L (15-37); SGPT/ALT 15 U/L (13-61); SODIUM 141 mmol/L (136-145); TOT PROT 6.8 g/dl (6.4-8.2)
--- NOTE | 2018-09-02 11:53 | PN ---
Physical Exam: SUBJECTIVE: Patient seen and examined OBJECTIVE: Vital Signs Period Temp Pulse Resp BP Sys/Mendoza Pulse Ox Last 24 Hr 97.8 F-98.2 F 68-116 20-24 102-120/63-66 95-96 GENERAL: The patient is awake, alert, and fully oriented, in no acute distress. HEAD: Normal with no signs of trauma. EYES: PERRL, extraocular movements intact, sclera anicteric, conjunctiva clear. No ptosis. ENT: Ears normal, nares patent, oropharynx clear without exudates, moist mucous membranes. NECK: Trachea midline, full range of motion, supple. LUNGS: Breath sounds equal, clear to auscultation bilaterally, no wheezes, no crackles, no accessory muscle use. HEART: Regular rate and rhythm, S1, S2 without murmur, rub or gallop. ABDOMEN: Soft, nontender, nondistended, normoactive bowel sounds, no guarding, no rebound, no hepatosplenomegaly, no masses. EXTREMITIES: 2+ pulses, warm, well-perfused, no edema. NEUROLOGICAL: Cranial nerves II through XII grossly intact. Normal speech, gait not observed. PSYCH: Normal mood, normal affect. SKIN: Warm, dry, normal turgor, no rashes or lesions noted Laboratory Results - last 24 hr 09/02/18 09/02/18 10:10 10:10 WBC 15.1 H RBC 5.18 Hgb 12.2 Hct 39.0 MCV 75.3 L MCH 23.5 L MCHC 31.2 L RDW 15.5 Plt Count 272 MPV 9.3 Absolute Neuts (auto) 13.5 H Neutrophils % 89.7 H Lymphocytes % 7.6 L D Monocytes % 2.6 L Eosinophils % 0.0 Basophils % 0.1 Nucleated RBC % 0 Sodium 141 Potassium 4.4 Chloride 106 Carbon Dioxide 22 Anion Gap 13 BUN 14 Creatinine 0.8 Creat Clearance w eGFR > 60 Random Glucose 197 H Calcium 9.2 Magnesium 2.1 Total Bilirubin 0.2 AST 7 L ALT 15 Alkaline Phosphatase 93 Total Protein 6.8 Albumin 3.4 Active Medications Generic Name Dose Route Start Last Admin Trade Name Freq PRN Reason Stop Dose Admin Acetaminophen 650 mg 09/01/18 21:23 09/01/18 22:13 Tylenol - PO 650 mg Q6H PRN Administration FEVER Albuterol/Ipratropium 1 amp 09/01/18 08:00 09/02/18 07:20 Duoneb - NEB 1 amp RQID RENATO Administration Albuterol/Ipratropium 1 amp 09/01/18 01:08 Duoneb - NEB Q4H PRN SHORTNESS OF BREATH Atorvastatin Calcium 10 mg 09/01/18 22:00 09/01/18 22:12 Lipitor - PO 10 mg HS RENATO Administration Budesonide/Formoterol Fumarate 1 puff 09/01/18 10:00 09/01/18 22:12 Symbicort 160/4.5mcg - IH 1 puff BID RENATO Administration Celecoxib 200 mg 09/01/18 01:41 Celebrex - PO DAILY PRN PAIN LEVEL 1-5 Enoxaparin Sodium 40 mg 09/01/18 10:00 09/01/18 10:09 Lovenox - SQ 40 mg DAILY RENATO Administration Loratadine 10 mg 09/01/18 10:00 09/01/18 10:01 Claritin - PO 10 mg DAILY RENATO Administration Methylprednisolone Sodium Succinate 40 mg 09/01/18 13:45 09/02/18 02:57 Solu-Medrol - IVPUSH 40 mg Q8H-IV RENATO Administration Montelukast Sodium 10 mg 09/01/18 22:00 09/01/18 22:12 Singulair - PO 10 mg HS RENATO Administration Pantoprazole Sodium 20 mg 09/01/18 06:45 Protonix - PO DAILY PRN DYSPEPSIA ASSESSMENT/PLAN:
[2018-09-02] MEDS: LORATADINE 10 MG TABLET PO SCH (12:06)
[2018-09-02] MEDS: ENOXAPARIN NA (PORCINE) 40 MG/0.4 ML DISP.SYRIN SQ SCH (12:06)
--- NOTE | 2018-09-02 12:21 | PN ---
Progress Note, Physician History of Present Illness: pulmonary alert,no distress,-sob,-cough - Current Medication List Current Medications: Active Medications Acetaminophen (Tylenol -) 650 mg PO Q6H PRN PRN Reason: FEVER Last Admin: 09/01/18 22:13 Dose: 650 mg Albuterol/Ipratropium (Duoneb -) 1 amp NEB RQID [facility] Last Admin: 09/02/18 07:20 Dose: 1 amp Albuterol/Ipratropium (Duoneb -) 1 amp NEB Q4H PRN PRN Reason: SHORTNESS OF BREATH Atorvastatin Calcium (Lipitor -) 10 mg PO HS [facility] Last Admin: 09/01/18 22:12 Dose: 10 mg Budesonide/Formoterol Fumarate (Symbicort 160/4.5mcg -) 1 puff IH BID [facility] Last Admin: 09/01/18 22:12 Dose: 1 puff Celecoxib (Celebrex -) 200 mg PO DAILY PRN PRN Reason: PAIN LEVEL 1-5 Enoxaparin Sodium (Lovenox -) 40 mg SQ DAILY [facility] Last Admin: 09/02/18 12:06 Dose: 40 mg Loratadine (Claritin -) 10 mg PO DAILY [facility] Last Admin: 09/02/18 12:06 Dose: 10 mg Methylprednisolone Sodium Succinate (Solu-Medrol -) 40 mg IVPUSH Q8H-IV [facility] Last Admin: 09/02/18 12:06 Dose: 40 mg Montelukast Sodium (Singulair -) 10 mg PO HS [facility] Last Admin: 09/01/18 22:12 Dose: 10 mg Pantoprazole Sodium (Protonix -) 20 mg PO DAILY PRN PRN Reason: DYSPEPSIA - Objective Vital Signs: Vital Signs Temperature 98.1 F 09/02/18 10:00 Pulse Rate 115 H 09/02/18 10:00 Respiratory Rate 20 09/02/18 10:00 Blood Pressure 127/70 09/02/18 10:00 O2 Sat by Pulse Oximetry (%) 96 09/01/18 21:00 Constitutional: Yes: Well Nourished, Calm Eyes: Yes: WNL HENT: Yes: WNL Neck: Yes: WNL Cardiovascular: Yes: Regular Rate and Rhythm, S1, S2 Respiratory: Yes: CTA Bilaterally Gastrointestinal: Yes: Normal Bowel Sounds, Soft Extremities: Yes: WNL Edema: No Labs: CBC, BMP 09/02/18 10:10 09/02/18 10:10 Problem List - Problems (1) Hypoxemia Code(s): R09.02 - HYPOXEMIA (2) Hypoxemia requiring supplemental oxygen Code(s): R09.02 - HYPOXEMIA; Z99.81 - DEPENDENCE ON SUPPLEMENTAL OXYGEN (3) Shortness of breath Code(s): R06.02 - SHORTNESS OF BREATH (4) Asthma exacerbation with COPD (chronic obstructive pulmonary disease) Code(s): J44.1 - CHRONIC OBSTRUCTIVE PULMONARY DISEASE W (ACUTE) EXACERBATION; J45.901 - UNSPECIFIED ASTHMA WITH (ACUTE) EXACERBATION Assessment/Plan IMP HYPOXEMIA RESOLVED ACUTE ASTHMA/COPD EXACERBATION IMPROVED HLD PLAN PREDNISONE WITH TAPER INHALED BRONCHODILATORS O2 MONITOR PEAK FLOW DVT PROPHYLAXIS PFTS OUTPATIENT AMBULATORY O2 SAT ON RA ANDREA LOPEZ Problem List - Problems (1) Hypoxemia Code(s): R09.02 - HYPOXEMIA (2) Hypoxemia requiring supplemental oxygen Code(s): R09.02 - HYPOXEMIA; Z99.81 - DEPENDENCE ON SUPPLEMENTAL OXYGEN (3) Shortness of breath Code(s): R06.02 - SHORTNESS OF BREATH (4) Asthma exacerbation with COPD (chronic obstructive pulmonary disease) Code(s): J44.1 - CHRONIC OBSTRUCTIVE PULMONARY DISEASE W (ACUTE) EXACERBATION; J45.901 - UNSPECIFIED ASTHMA WITH (ACUTE) EXACERBATION
[2018-09-02] MEDS ORDERED: ALBUTEROL SO4 0.083% IH SOL 2.5 MG/3 ML VIAL.NEB. NEB PRN (12:23)
[2018-09-02] MEDS ORDERED: TIOTROPIUM BROMIDE 2.5 MCG (SPIRIVA) RESPIMAT INHALER IH SCH (12:30)
[2018-09-02] MEDS ORDERED: PT OWN MED DRAWER 7, Y5N ONE ×2 (12:56→15:49)
[2018-09-02] MEDS: BUDESONIDE/FORMETEROL FUMARATE 160/4.5 mcg INHALER IH SCH (13:12)
[2018-09-02] MEDS ORDERED: MOMETASONE FUROATE 220 MCG/IH INHALER IH SCH (13:15)
[2018-09-02 14:11] VITALS: BP 120/72; PULSE 114; TEMP 97.9
--- NOTE | 2018-09-02 15:44 | DS ---
Physical Exam: SUBJECTIVE: Patient seen and examined at the bedside. Feels well. ambulated with respiratory therapist. denies any shortness of breath. wants to go home. denies any chest pain or palpitations. OBJECTIVE: Vital Signs Period Temp Pulse Resp BP Sys/Mendoza Pulse Ox Last 24 Hr 97.8 F-98.1 F 93-120 18-22 106-127/63-72 93-96 PHYSICAL EXAM GENERAL: The patient is awake, alert, and fully oriented, in no acute distress. HEAD: Normal with no signs of trauma. EYES: PERRL, extraocular movements intact, sclera anicteric, conjunctiva clear. No ptosis. ENT: Ears normal, nares patent, oropharynx clear without exudates, moist mucous membranes. NECK: Trachea midline, full range of motion, supple. LUNGS:diminished bilaterally, oxygen stable, no coughing with deep breathing. respiratory pre and post oxygen stable. HEART: Regular rate and rhythm, tachycardia with albuterol, but denies any symptoms ABDOMEN: Soft, nontender, nondistended, normoactive bowel sounds, no guarding, no rebound, no hepatosplenomegaly, no masses. EXTREMITIES: 2+ pulses, warm, well-perfused, no edema. NEUROLOGICAL: Cranial nerves II through XII grossly intact. Normal speech, gait not observed. PSYCH: Normal mood, normal affect. SKIN: Warm, dry, normal turgor, no rashes or lesions noted LABS Laboratory Results - last 24 hr 09/02/18 09/02/18 10:10 10:10 WBC 15.1 H RBC 5.18 Hgb 12.2 Hct 39.0 MCV 75.3 L MCH 23.5 L MCHC 31.2 L RDW 15.5 Plt Count 272 MPV 9.3 Absolute Neuts (auto) 13.5 H Neutrophils % 89.7 H Lymphocytes % 7.6 L D Monocytes % 2.6 L Eosinophils % 0.0 Basophils % 0.1 Nucleated RBC % 0 Sodium 141 Potassium 4.4 Chloride 106 Carbon Dioxide 22 Anion Gap 13 BUN 14 Creatinine 0.8 Creat Clearance w eGFR > 60 Random Glucose 197 H Calcium 9.2 Magnesium 2.1 Total Bilirubin 0.2 AST 7 L ALT 15 Alkaline Phosphatase 93 Total Protein 6.8 Albumin 3.4 HOSPITAL COURSE: Date of Admission:09/01/18 Date of Discharge: 09/02/18 ASSESSMENT/PLAN: Patient is a 62 year old female with a past medical history of asthma and COPD ( not home oxygen dependent). She presents to the ED with cough and was found to have asthma exacerbation. She had recently traveled to [place]. Hospital course by problem list: Pulm: Asthma exacerbation, improved. Able to take in deep breaths without coughing. tolerating room air and was able to ambulate with respiratory therapist with stable oxygen levels. No further shortness of breath or coughing. comfortable at rest and with ambulation. Patient states she feels better and wants to go home. Will be sent home with Asmanex and Spiriva inhalers and Prednisone 10 day taper (as outlined on discharge instructions). Discussed with Dr. Bolden, and agrees with Prednisone taper and discharge. Patient will follow up with him outpatient within 1 week. Chest xray negative for acute process. Leukocytosis secondary to steriods, no fevers and clinically appears much better. Appointment made with Dr. Florencio Fontaine outpatient on sep 15 @ 2:15p for follow up (patient requesting new PCP) Card: Echo with trace MR, trace TR, trace aortic regurg. Vascular: Negative for DVT CTA negative for PE discharge home. Minutes to complete discharge: 60 Discharge Summary Reason For Visit: SOB/HISTORY OF ASTHMA Current Active Problems Asthma exacerbation with COPD (chronic obstructive pulmonary disease) (Acute) Hypoxemia (Acute) Hypoxemia requiring supplemental oxygen (Acute) Shortness of breath (Acute) Condition: Improved - Instructions Diet, Activity, Other Instructions: Mrs Mahan: You were admitted with acute asthma exacerbation. You will be sent home with a Prednisone taper as follows: Prednisone 10mg tablets: Each tablet is 10mg. On 09/02/2018 take Prednisone 60mg - given to you before you left the hospital. no more needed today. On 09/03/2018 take Prednisone 50mg at 8am and 8pm - twice per day (five 10mg tablets twice per day) On 09/04/2018 take Prednisone 40mg at 8am and 8pm - twice per day (four 10mg tablets twice per day) On 09/05/2018 take Prednisone 40mg once at 8am - once per day (four 10mg tablets once per day) On 09/06/2018 take Prednisone 30mg once at 8am - once per day (three 10mg tablets once per day) On 09/07/2018 take Prednisone 30mg once at 8am - once per day (three 10mg tablets once per day) On 09/08/2018 take Prednisone 20mg once at 8am - once per day (two 10mg tablets once per day) On 09/09/2018 take Prednisone 20mg once at 8am - once per day (two 10mg tablets once per day) On 09/10/2018 take Prednisone 10mg once at 8am - once per day (one 10mg tablet once per day) On 09/11/2018 take Prednisone 10mg once at 8am - once per day (one 10mg tablet once per day) Please take the Protonix 40mg daily at 8am while you are on the steriods. Protonix is a stomac protector. Also you patricia be sent home with two inhalers which are maintenance inhalers. I will also send you home with ventolin. Please keep in mind that prednisone cannot be stopped abruptly and has to be tapered off. Please see Dr. Bolden within 1 week after discharged for follow up. I have made an appointment for you to see william Aquino PCP on September 15 2018 at 2:15 pm. Please bring your discharge paperwork as well as your insurance card. Thank you for allowing us to care for you. I am available for any questions that you may have. Cat [facility] [employer] [phone] [facility] Referrals: Bright Bolden MD [Staff Physician] - 1 Week Ines Tan MD [Staff Physician] - (september 15 2:15 pm. bring your insurance card) David Og MD [Primary Care Provider] - Disposition: HOME - Home Medications Comprehensive Discharge Medication List: Ambulatory Orders Loratadine [Claritin] 10 mg PO PRN capsule 12/21/13 Montelukast Sodium [Singulair] 10 mg PO HS tablet 12/21/13 Albuterol Sulfate Inhaler - [Ventolin HFA Inhaler -] 1 - 2 inh PO PRN PRN Budesonide/Formeterol Fumarate [SYMBICORT 160/4.5mcg -] 1 inh PO BID 11/02/14 Celecoxib [Celebrex] 200 mg PO DAILY 11/02/14 Omeprazole [Prilosec] 20 mg PO PRN PRN 11/02/14 Simvastatin [Zocor -] 20 mg PO HS 11/02/14 Acetaminophen [Tylenol .Regular Strength -] 650 mg PO Q4H PRN #0 tablet Ibuprofen [Motrin -] 400 mg PO Q6H #120 tablet 11/05/14 This patient is new to me today: No Emergency Visit: Yes ED Registration Date: 09/01/18 Care time: The patient presented to the Emergency Department on the above date and was hospitalized for further evaluation of their emergent condition. Critical Care patient: No - Discharge Referral Referred to [facility] Med P.C[facility] No
[2018-09-02] MEDS ORDERED: predniSONE 20 MG TABLET (UD) PO ONE (17:05)
[2018-09-02] MEDS ORDERED: ARFORMOTEROL TARTRATE 15 MCG/2 ML VIAL NEB SCH (20:00)
== END 2018-09-02 18:37 | disposition home or self-care (01) | DRG 140 ==
LOC: JER 18:48 → JERBED 22:16 → UNDOADMOB 22:55 → J5S 09-01 03:20 → OBSVTOIN 09-01 15:45
PROVIDERS: ADMIT Internal Medicine; ATTEND Nurse Practitioner Family
DX: J44.1 Chronic obstructive pulmonary disease with (acute) exacerbation (principal); E78.5 Hyperlipidemia, unspecified; I51.7 Cardiomegaly; R00.0 Tachycardia, unspecified; J45.901 Unspecified asthma with (acute) exacerbation
CPT/HCPCS: 36415; 71045-TC-FY; 71275-TC; 80048; 80053; 82550; 82803; 82962; 83605; 83735; 83880; 84484; 85025; 85379; 87040; 93005; 93010; 93306-TC; 93971-TC; 94150; 94640; 94761; 99285-25; G0378